=== PATIENT | female | born 1985 | race Caucasian/White ===

== ENCOUNTER 2023-10-30 20:34 | Emergency (ER) | payer MEDICAID ==
[2023-10-30] MEDS ORDERED: Sodium Chloride 0.9% 10 ML Syringe FLUSH PRN (20:48)
[2023-10-30] MEDS: Ondansetron 4 MG/2 ML SDV IVPUSH ONE (21:00)
[2023-10-30 21:05] LABS: HEMATOCRIT 40.5 % (34.2-48.2); HEMOGLOBIN 13.8 g/dL (11.4-15.5); MEAN CORPUSCULAR HEMOGLOBIN 36.1 pg (23.9-33.9); MEAN CORPUSCULAR HGB CONC 34.1 g/dL (31.9-34.8); MEAN CORPUSCULAR VOLUME 105.9 fL (76.7-100.5); MEAN PLATELET VOLUME 10.1 fL (7.1-12.4); PLATELET COUNT,PLT 73 x10(3)uL (151-488); RED BLOOD CELL COUNT 3.82 x10(6)uL (3.60-5.20); RED CELL DISTRIBUTION WIDTH 13.2 % (12.3-16.5); WHITE BLOOD CELL COUNT,WBC 4.1 x10-3/uL (3.0-10.3)
[2023-10-30] MEDS: Ketorolac 30 MG/ML SDV IVPUSH ONE (21:10)
[2023-10-30 21:14] LABS: ALANINE AMINOTRANSFERASE,ALT 42 U/L (12-36); ALBUMIN 4.7 g/dL (3.5-5.2); ALKALINE PHOSPHATASE 115 IU/L (56-112); ASPARTATE AMNIOTRANSFERASE,AST 95 IU/L (5-25); BLOOD UREA NITROGEN,BUN 15 mg/dL (7-18); CALCIUM 10.3 mg/dL (8.6-10.2); CARBON DIOXIDE,CO2 23 mmol/L (21-32); CREATININE 1.5 mg/dL (0.55-1.02); ESTIMATED GFR 45 mL/min (>60); GLUCOSE RANDOM 172 mg/dL (80-116); POTASSIUM,K 3.2 mmol/L (3.5-5.3); PROTEIN TOTAL,TP 9.2 g/dL (6.0-8.0); SODIUM,NA 130 mmol/L (135-145)
[2023-10-30 21:17] LABS: CHLORIDE,CL 83 mmol/L (100-110)
[2023-10-30] MEDS: LORazepam 2 MG/ML SDV IVPUSH ONE (21:21)
[2023-10-30 21:23] LABS: BAND PERCENT MAN 4 % (0-6); LYMPHOCYTES PERCENT MAN 10 % (13-37); MONOCYTES PERCENT MAN 6 % (4-12); NRBC MANUAL 1 /100WBC (0-0); SEG NEUTROPHILS PERCENT MAN 80 % (46-82)
[2023-10-30] MEDS: Thiamine 200 MG/2 ML MDV IVPUSH ONE (21:30)
[2023-10-30] MEDS: Sodium Chloride 0.9% 1,000 ML IV SCH ×2 (21:30→22:30)
[2023-10-30] MEDS: Ondansetron 4 MG/2 ML SDV ONE (22:27)
== END 2023-10-30 23:39 | disposition home or self-care (01) ==
LOC: FB.ED 20:34
DX: F10.10 Alcohol abuse, uncomplicated (principal); I10 Essential (primary) hypertension; Z79.899 Other long term (current) drug therapy
CPT/HCPCS: 36415; 80053; 80307; 82150; 85025; 96361; 96374; 96375; 99284; J1885; J2060; J2405; J3411; J7030

== ENCOUNTER 2024-04-07 18:33 | Emergency (ER) | payer MEDICAID ==
[2024-04-07 19:16] LABS: BASOPHILS PERCENT AUTO 0.6 % (0.2-1.5); BLOOD UREA NITROGEN,BUN 8 mg/dL (7-18); BUN/CREATININE RATIO 13.3 (9-20); CALCIUM 9.8 mg/dL (8.6-10.2); CARBON DIOXIDE,CO2 30 mmol/L (21-32); CHLORIDE,CL 101 mmol/L (100-110); CREATININE 0.6 mg/dL (0.55-1.02); EOSINOPHILS ABSOLUTE AUTO 0.1 x10-3/uL (0.0-0.8); EOSINOPHILS PERCENT AUTO 1.9 % (0.6-8.1); EST CRCL DRUG DOSING (CG) 116.68 mL/min; ESTIMATED GFR 116 mL/min (>60); GLUCOSE RANDOM 83 mg/dL (80-116); HEMATOCRIT 39.9 % (34.2-48.2); HEMOGLOBIN 13.7 g/dL (11.4-15.5); LYMPHOCYTES ABSOLUTE AUTO 1.5 x10-3/uL (1.0-4.4); LYMPHOCYTES PERCENT AUTO 29.8 % (18.4-52.1); MEAN CORPUSCULAR HEMOGLOBIN 36.7 pg (23.9-33.9); MEAN CORPUSCULAR HGB CONC 34.4 g/dL (31.9-34.8); MEAN CORPUSCULAR VOLUME 106.7 fL (76.7-100.5); MEAN PLATELET VOLUME 8.3 fL (7.1-12.4); MONOCYTES ABSOLUTE AUTO 0.3 x10-3/uL (0.3-1.0); MONOCYTES PERCENT AUTO 5.4 % (4.4-15.7); NEUTROPHILS ABSOLUTE AUTO 3.2 x10-3/uL (1.5-6.3); NEUTROPHILS PERCENT AUTO 62.3 % (30.8-76.2); PLATELET COUNT,PLT 128 x10(3)uL (151-488); POTASSIUM,K 4.2 mmol/L (3.5-5.3); RED CELL DISTRIBUTION WIDTH 13.6 % (12.3-16.5); SODIUM,NA 139 mmol/L (135-145); WHITE BLOOD CELL COUNT,WBC 5.2 x10-3/uL (3.0-10.3)
[2024-04-07 19:23] LABS: ALANINE AMINOTRANSFERASE,ALT 70 U/L (12-36); ALBUMIN 4.3 g/dL (3.5-5.2); ALKALINE PHOSPHATASE 118 IU/L (56-112); ASPARTATE AMNIOTRANSFERASE,AST 147 IU/L (5-25); BILIRUBIN TOTAL 0.7 mg/dL (0.1-1.3); PROTEIN TOTAL,TP 8.6 g/dL (6.0-8.0)
[2024-04-07 19:27] LABS: RED BLOOD CELL COUNT 3.74 x10(6)uL (3.60-5.20)
[2024-04-07 19:35] LABS: TROPONIN I 5.3 pg/mL (4.0-60.3)
[2024-04-07 19:38] LABS: ETHANOL BLOOD MEDICAL 0.34 % (<0.03)
[2024-04-07] MEDS: Ibuprofen 600 MG Tab PO ONE (20:20)
== END 2024-04-07 20:53 | disposition home or self-care (01) ==
LOC: FB.ED 18:33
DX: R07.89 Other chest pain (principal); F10.129 Alcohol abuse with intoxication, unspecified; I10 Essential (primary) hypertension; J44.89 Other specified chronic obstructive pulmonary disease; F17.210 Nicotine dependence, cigarettes, uncomplicated; Z79.899 Other long term (current) drug therapy
CPT/HCPCS: 36415; 71046; 80053; 80307; 84484; 85025; 93005; 99285; A9270-GY